=== PATIENT | male | born 1960 | race African-American/Black ===

== ENCOUNTER 2019-09-07 22:47 | Inpatient (IN) ==
[2019-09-07] MEDS ORDERED: ONDANSETRON 4 MG/2 ML VIAL IV STA (23:23)
[2019-09-07] MEDS ORDERED: fentaNYL 100 MCG/2 ML VIAL IV STA (23:23)
[2019-09-07 23:42] LABS: Basophils # 0.1 10*3/uL (0.0-0.2); Basophils % 0.9 % (0.0-0.8); Eosinophils # 0.1 10*3/uL (0.0-0.87); Hematocrit 49.1 VOL% (42.0-52.0); Hemoglobin 17.5 GM/DL (14.0-18.0); Immature Granulocytes % 0.3 %; Immature Granulocytes Absolute 0.02 #; Lymphocytes # 1.8 10*3/uL (1.4-4.0); Lymphocytes % 26.7 % (21.2-54.2); Mean Corpuscular HGB Conc 35.6 GM/DL (32-36); Mean Corpuscular Volume 94.4 FL (87-102); Mean Platelet Volume 11.5 FL (9.6-12.0); Monocytes % 11.5 % (1.7-12.7); Neutrophils % 58.6 % (38.7-73.9); Platelet Count 214 T/CUMM (130-400); Red Cell Distribution Width 13.4 % (9.3-17.3); White Blood Count 6.6 T/CUMM (4-12)
[2019-09-07 23:52] LABS: INR 1.1; PT Patient Result 11.8 SECS (9.8-11.9)
[2019-09-07] MEDS ORDERED: METOPROLOL TARTRATE 5 MG/5 ML VIAL IV STA (23:53)
[2019-09-08] MEDS ORDERED: fentaNYL 100 MCG/2 ML VIAL IV STA (00:29)
[2019-09-08 00:35] LABS: Alanine Aminotransferase 22 U/L (16-61); Albumin 3.3 G/DL (3.4-5.0); Alkaline Phosphatase 146 U/L (45-117); Aspartate Amino Transferase 51 U/L (0-37); Blood Urea Nitrogen 10 MG/DL (7-18); Calcium 8.6 MG/DL (8.5-10.1); Estimated Glom Filtration Rate 67 ML/MIN; Glucose 89 MG/DL (74-106); Osmolality,Calculated 267.1 MOS/KG (273-304); Total Protein 7.9 G/DL (6.4-8.3); Troponin I < 0.015 NG/ML (0.00-0.045)
[2019-09-08] MEDS ORDERED: DILTIAZEM 50 MG/10 ML VIAL IV STA (01:26)
[2019-09-08] MEDS: dilTIAZem Drip 125 MG/125 ML PREMIX IV SCH (02:14)
[2019-09-08 02:25] LABS: Calcium 8.6 MG/DL (8.5-10.1); Osmolality,Calculated 269.1 MOS/KG (273-304)
[2019-09-08] MEDS ORDERED: HYDROmorphone 2 MG/1 ML VIAL IV STA (02:54)
[2019-09-08] MEDS ORDERED: HYDROmorphone 2 MG/1 ML VIAL IV PRN (03:05)
[2019-09-08] MEDS ORDERED: ONDANSETRON 4 MG/2 ML VIAL IV PRN (03:13)
[2019-09-08] MEDS ORDERED: DOCUSATE SODIUM 100 MG CAPSULE PO PRN (03:13)
[2019-09-08] MEDS ORDERED: ACETAMINOPHEN 325 MG TABLET PO PRN (03:13)
[2019-09-08] MEDS ORDERED: HEPARIN DRIP 25,000 UNITS/500 ML PREMIX IV SCH (03:30)
[2019-09-08] MEDS ORDERED: HEPARIN 5,000 UNIT/1 ML VIAL IV PRN (03:40)
[2019-09-08 03:56] LABS: Risk Ratio 2.64
[2019-09-08] MEDS: SODIUM CHLORIDE 0.9% 1,000 ML IV SCH (05:12)
[2019-09-08] MEDS ORDERED: METOPROLOL TARTRATE 25 MG TABLET PO SCH (09:00)
[2019-09-08] MEDS ORDERED: VARENICLINE PO SCH (09:00)
[2019-09-08] MEDS: SACUBITRIL/VALSARTAN 49-51 MG TABLET PO SCH ×2 (09:48→22:11)
[2019-09-08] MEDS ORDERED: DIAZEPAM 5 MG TABLET PO ONE (11:19)
[2019-09-08] MEDS ORDERED: diphenhydrAMINE CAP 25 MG CAPSULE PO ONE (11:19)
[2019-09-08] MEDS ORDERED: LIDOCAINE 1% 20 ML VIAL ONE (12:45)
[2019-09-08] MEDS ORDERED: MIDAZOLAM 2 MG/2 ML VIAL ONE (12:45)
[2019-09-08] MEDS ORDERED: fentaNYL 100 MCG/2 ML VIAL ONE (12:46)
[2019-09-08] MEDS ORDERED: HYDROmorphone 2 MG/1 ML VIAL ONE ×2 (13:54→15:38)
[2019-09-08] MEDS ORDERED: TIROFIBAN 5,000 MCG/100 ML PREMIX IV ONE (14:28)
[2019-09-08] MEDS ORDERED: HEPARIN 5,000 UNIT/1 ML VIAL ONE (14:31)
[2019-09-08] MEDS ORDERED: NITROGLYCERIN DRIP 50 MG/250 ML BOTTLE IV ONE (15:02)
[2019-09-08] MEDS ORDERED: CLOPIDOGREL 300 MG TABLET ONE (15:52)
[2019-09-08] MEDS: TIROFIBAN 5,000 MCG/100 ML PREMIX IV SCH (15:53)
[2019-09-08] MEDS ORDERED: METOPROLOL TARTRATE 50 MG TABLET PO ONE (15:56)
[2019-09-08] MEDS ORDERED: NITROGLYCERIN SL 0.4 MG TABLET SL PRN (15:59)
[2019-09-08] MEDS ORDERED: ROSUVASTATIN 20 MG TABLET PO SCH (21:00)
[2019-09-08] MEDS: TICAGRELOR 90 MG TABLET PO SCH (22:11)
[2019-09-08] MEDS: METOPROLOL SUCCINATE XL 50 MG TABLET PO SCH (22:11)
[2019-09-09 05:39] LABS: Basophils % 0.8 % (0.0-0.8); Eosinophils # 0.1 10*3/uL (0.0-0.87); Eosinophils % 2.4 % (0.00-10.9); Hematocrit 46.9 VOL% (42.0-52.0); Hemoglobin 16.1 GM/DL (14.0-18.0); Immature Granulocytes % 0.4 %; Immature Granulocytes Absolute 0.02 #; Lymphocytes # 1.1 10*3/uL (1.4-4.0); Lymphocytes % 22.6 % (21.2-54.2); Mean Corpuscular HGB Conc 34.3 GM/DL (32-36); Mean Corpuscular Volume 97.3 FL (87-102); Mean Platelet Volume 10.6 FL (9.6-12.0); Monocytes % 11.7 % (1.7-12.7); Neutrophils % 62.1 % (38.7-73.9); Platelet Count 172 T/CUMM (130-400); Red Blood Count 4.82 MC/CUMM (3.8-5.5); Red Cell Distribution Width 12.8 % (9.3-17.3); White Blood Count 5.1 T/CUMM (4-12)
[2019-09-09 06:02] LABS: Albumin 2.8 G/DL (3.4-5.0); Bilirubin,Total 1.6 MG/DL (0.2-1.0); Osmolality,Calculated 270.8 MOS/KG (273-304); Total Protein 6.3 G/DL (6.4-8.3)
[2019-09-09] MEDS: TIROFIBAN 5,000 MCG/100 ML PREMIX IV SCH (07:29)
[2019-09-09] MEDS: dilTIAZem Drip 125 MG/125 ML PREMIX IV SCH (07:29)
[2019-09-09] MEDS: SODIUM CHLORIDE 0.9% 1,000 ML IV SCH (07:29)
[2019-09-09 08:04] VITALS: BP 140/92
[2019-09-09] MEDS: TICAGRELOR 90 MG TABLET PO SCH (08:47)
[2019-09-09] MEDS: SACUBITRIL/VALSARTAN 49-51 MG TABLET PO SCH (08:48)
[2019-09-09] MEDS: METOPROLOL SUCCINATE XL 50 MG TABLET PO SCH (08:48)
[2019-09-10] MEDS ORDERED: ERGOCALCIFEROL 50,000 UNIT CAPSULE PO SCH (09:00)
== END 2019-09-09 12:10 | disposition home or self-care (01) | DRG 253 ==
LOC: EDBD → EDUNIT# → N.ED 22:47 → N.EDINP 09-08 03:04 → N.TELES 09-08 03:31
PROVIDERS: ADMIT Internal Medicine; ATTEND Internal Medicine

== ENCOUNTER 2021-09-15 12:46 | Inpatient (IN) ==
[2021-09-15] MEDS ORDERED: SODIUM CHLORIDE 0.9% 1,000 ML IV STA ×2 (15:17→16:15)
[2021-09-15 15:45] LABS: Alanine Aminotransferase 18 U/L (16-61); Albumin 3.1 G/DL (3.4-5.0); Alkaline Phosphatase 73 U/L (45-117); Aspartate Amino Transferase 36 U/L (0-37); Blood Urea Nitrogen 14 MG/DL (7-18); Calcium 8.4 MG/DL (8.5-10.1); Carbon Dioxide 22 MMOL/L (21-32); Chloride 98 MMOL/L (98-107); Glucose 119 MG/DL (74-106); Osmolality,Calculated 269.2 MOS/KG (273-304); Potassium 3.8 MMOL/L (3.5-5.1); Sodium 134 MMOL/L (136-145); Total Protein 8.2 G/DL (6.4-8.2)
[2021-09-15] MEDS ORDERED: DILTIAZEM 100 MG VIAL.ADD IV ONE (15:55)
[2021-09-15] MEDS ORDERED: DILTIAZEM 25 MG/5 ML VIAL IV ONE (15:55)
[2021-09-15] MEDS ORDERED: DILTIAZEM 25 MG/5 ML VIAL IV STA (16:11)
[2021-09-15] MEDS: DILTIAZEM INJ 100 MG in SODIUM CHLORIDE 0.9% 100 ML IV SCH ×2 (16:25→23:38)
[2021-09-15 16:58] LABS: Basophils % 0.3 % (0.0-0.8); Hematocrit 53.9 VOL% (42.0-52.0); Hemoglobin 18.6 GM/DL (14.0-18.0); Immature Granulocytes % 0.3 %; Immature Granulocytes Absolute 0.02 #; Lymphocytes # 0.5 10*3/uL (1.4-4.0); Lymphocytes % 8.5 % (21.2-54.2); Mean Corpuscular HGB Conc 34.5 GM/DL (32-36); Mean Corpuscular Volume 98.4 FL (87-102); Monocytes # 0.4 10*3/uL (0.11-0.8); Monocytes % 7.6 % (1.7-12.7); Neutrophils % 83.3 % (38.7-73.9); Platelet Count 125 T/CUMM (130-400); Red Blood Count 5.48 MC/CUMM (3.8-5.5); Red Cell Distribution Width 13.4 % (9.3-17.3); White Blood Count 5.8 T/CUMM (4-12)
[2021-09-15] MEDS ORDERED: GLUCAGON 1 MG VIAL IM PRN (17:41)
[2021-09-15] MEDS ORDERED: ACETAMINOPHEN 325 MG TABLET PO PRN (17:41)
[2021-09-15] MEDS ORDERED: ONDANSETRON 4 MG/2 ML VIAL IV PRN (17:41)
[2021-09-15 17:59] LABS: Glucose,Urine (UA) Negative (Negative); Ketones,Urine 15 mg/dL (Negative); Nitrite,Urine Negative (Negative); Protein,Urine >=300 mg/dL (Negative); Urine Appearance Clear (Clear); Urine Color Yellow (Yellow); Urine Specific Gravity >= 1.030 (1.001-1.035); Urine pH 5.5 (4.5-8.0)
[2021-09-15 18:00] LABS: Bilirubin,Urine Negative (Negative); Blood, Urine Moderate mg/dL (Negative); Urine Urobilinogen 0.2 eU/dL (<2.0)
[2021-09-15] MEDS ORDERED: ENOXAPARIN 100 MG/ML SYRINGE SUBCUT SCH (18:00)
[2021-09-15 18:03] LABS: Hyaline Casts,Urine 1 /LPF (0-3); Mucus,Urine Occasional /LPF (Occasional); RBC,Urine 2 /HPF (0-4); Squamous Epithelial Cell,Urine Occasional /HPF (0-10)
[2021-09-15 18:24] LABS: Barbiturates Screen,Urine Negative (Negative); Benzodiazepines Screen,Urine Negative (Negative); Cannabinoid Screen,Urine Positive (Negative); Opiate Screen,Urine Negative (Negative); Phencyclidine Screen,Urine Negative (Negative)
[2021-09-15] MEDS ORDERED: DEXTROSE 10% 250 ML BAG IV PRN (18:30)
[2021-09-15] MEDS: SODIUM CHLORIDE 0.9% 1,000 ML IV SCH (18:55)
[2021-09-15] MEDS: LEVALBUTEROL 1.25 MG/3 ML NEB RESP TX SCH (19:24)
[2021-09-15] MEDS: APIXABAN 5 MG TABLET PO SCH (21:35)
[2021-09-15] MEDS: cefTRIAXone 1,000 MG in SODIUM CHLORIDE 0.9% 100 ML IV SCH (21:35)
[2021-09-15] MEDS: METOPROLOL SUCCINATE XL 100 MG TABLET PO SCH (21:35)
[2021-09-15] MEDS: SACUBITRIL/VALSARTAN 49-51 MG TABLET PO SCH (21:35)
[2021-09-15] MEDS: AZITHROMYCIN INJ 500 MG in SODIUM CHLORIDE 0.9% 250 ML IV SCH (21:35)
[2021-09-16] MEDS: LEVALBUTEROL 1.25 MG/3 ML NEB RESP TX SCH ×4 (00:13→19:07)
[2021-09-16] MEDS: DIAZEPAM 10 MG/2 ML SYRINGE IV PRN (00:20)
[2021-09-16] MEDS: chlordiazePOXIDE 10 MG CAPSULE PO SCH ×4 (00:20→20:05)
[2021-09-16 05:26] LABS: Basophils % 0.2 % (0.0-0.8); Hematocrit 42.7 VOL% (42.0-52.0); Immature Granulocytes % 0.5 %; Immature Granulocytes Absolute 0.02 #; Lymphocytes # 0.6 10*3/uL (1.4-4.0); Lymphocytes % 13.3 % (21.2-54.2); Mean Corpuscular HGB Conc 34.9 GM/DL (32-36); Mean Corpuscular Volume 97.5 FL (87-102); Mean Platelet Volume 12.9 FL (9.6-12.0); Monocytes # 0.4 10*3/uL (0.11-0.8); Monocytes % 8.6 % (1.7-12.7); Neutrophils % 77.4 % (38.7-73.9); Red Cell Distribution Width 13.4 % (9.3-17.3); White Blood Count 4.3 T/CUMM (4-12)
[2021-09-16 05:30] LABS: Hemoglobin 14.9 GM/DL (14.0-18.0); Platelet Count 91 T/CUMM (130-400); Red Blood Count 4.38 MC/CUMM (3.8-5.5)
[2021-09-16 05:47] LABS: Band Neutrophils 2 % (0-10); Lymphocytes 8 % (20-55); Platelet Estimate Decreased; Total Cells Counted 100
[2021-09-16 05:52] LABS: Albumin 2.1 G/DL (3.4-5.0); Bilirubin,Total 0.6 MG/DL (0.20-1.00); Calcium 7.9 MG/DL (8.5-10.1); Osmolality,Calculated 269.1 MOS/KG (273-304); Potassium 3.3 MMOL/L (3.5-5.1); Thyroid Stimulating Hormone 0.558 uIU/ml (0.358-3.74)
[2021-09-16] MEDS: APIXABAN 5 MG TABLET PO SCH ×2 (09:31→20:05)
[2021-09-16] MEDS: METOPROLOL SUCCINATE XL 100 MG TABLET PO SCH ×2 (09:31→20:05)
[2021-09-16] MEDS: SODIUM CHLORIDE 0.9% 1,000 ML IV SCH ×3 (09:31→11:17)
[2021-09-16] MEDS: predniSONE 20 MG TABLET PO SCH (09:32)
[2021-09-16] MEDS: SACUBITRIL/VALSARTAN 49-51 MG TABLET PO SCH (09:32)
[2021-09-16] MEDS: CYANOCOBALAMIN 500 MCG TABLET PO SCH (09:32)
[2021-09-16] MEDS: ASPIRIN EC 81 MG TABLET PO SCH (09:32)
[2021-09-16] MEDS: VERAPAMIL SR 120 MG TABLET PO SCH (09:32)
[2021-09-16] MEDS: PANTOPRAZOLE 40 MG TABLET PO SCH (09:32)
[2021-09-16] MEDS: DILTIAZEM INJ 100 MG in SODIUM CHLORIDE 0.9% 100 ML IV SCH (09:32)
[2021-09-16] MEDS: BETAMETHASONE AUGMENTED 0.05% TOP SCH ×2 (11:14→20:05)
[2021-09-16] MEDS ORDERED: POTASSIUM CHLORIDE 20 MEQ TABLET PO ONE (12:16)
[2021-09-16] MEDS: cefTRIAXone 1,000 MG in SODIUM CHLORIDE 0.9% 100 ML IV SCH (16:46)
[2021-09-16] MEDS ORDERED: SODIUM CHLORIDE 0.9% 500 ML IV ONE (17:12)
[2021-09-16] MEDS: AZITHROMYCIN INJ 500 MG in SODIUM CHLORIDE 0.9% 250 ML IV SCH (18:28)
[2021-09-17] MEDS: LEVALBUTEROL 1.25 MG/3 ML NEB RESP TX SCH ×4 (00:28→19:37)
[2021-09-17] MEDS: SODIUM CHLORIDE 0.9% 1,000 ML IV SCH ×2 (01:00→15:49)
[2021-09-17] MEDS: DIAZEPAM 10 MG/2 ML SYRINGE IV PRN (04:30)
[2021-09-17] MEDS ORDERED: POTASSIUM CHLORIDE 20 MEQ TABLET PO ONE (08:05)
[2021-09-17] MEDS: BETAMETHASONE AUGMENTED 0.05% TOP SCH ×2 (09:07→21:28)
[2021-09-17] MEDS: predniSONE 20 MG TABLET PO SCH (09:11)
[2021-09-17] MEDS: METOPROLOL SUCCINATE XL 100 MG TABLET PO SCH ×2 (09:11→20:34)
[2021-09-17] MEDS: VERAPAMIL SR 120 MG TABLET PO SCH (09:11)
[2021-09-17] MEDS: ASPIRIN EC 81 MG TABLET PO SCH (09:12)
[2021-09-17] MEDS: DAPAGLIFLOZIN 10 MG TABLET PO SCH (09:12)
[2021-09-17] MEDS: chlordiazePOXIDE 10 MG CAPSULE PO SCH ×3 (09:12→20:34)
[2021-09-17] MEDS: CYANOCOBALAMIN 500 MCG TABLET PO SCH (09:12)
[2021-09-17] MEDS: APIXABAN 5 MG TABLET PO SCH ×2 (09:12→20:35)
[2021-09-17] MEDS: PANTOPRAZOLE 40 MG TABLET PO SCH (09:12)
[2021-09-17 11:19] LABS: Calcium 8.7 MG/DL (8.5-10.1); Osmolality,Calculated 269.2 MOS/KG (273-304); Potassium 4.3 MMOL/L (3.5-5.1)
[2021-09-17] MEDS: cefTRIAXone 1,000 MG in SODIUM CHLORIDE 0.9% 100 ML IV SCH (18:05)
[2021-09-17] MEDS: DILTIAZEM INJ 100 MG in SODIUM CHLORIDE 0.9% 100 ML IV SCH (19:57)
[2021-09-17] MEDS: SACUBITRIL/VALSARTAN 49-51 MG TABLET PO SCH (20:34)
[2021-09-18] MEDS: LEVALBUTEROL 1.25 MG/3 ML NEB RESP TX SCH ×2 (00:44→07:46)
[2021-09-18] MEDS: DIAZEPAM 10 MG/2 ML SYRINGE IV PRN (01:04)
[2021-09-18] MEDS: SODIUM CHLORIDE 0.9% 1,000 ML IV SCH ×2 (03:07→11:11)
[2021-09-18 04:24] LABS: Hematocrit 42.5 VOL% (42.0-52.0); Hemoglobin 14.8 GM/DL (14.0-18.0); Immature Granulocytes % 0.3 %; Immature Granulocytes Absolute 0.01 #; Lymphocytes # 0.4 10*3/uL (1.4-4.0); Lymphocytes % 14.2 % (21.2-54.2); Mean Corpuscular HGB Conc 34.8 GM/DL (32-36); Mean Corpuscular Volume 95.9 FL (87-102); Mean Platelet Volume 13.5 FL (9.6-12.0); Monocytes # 0.3 10*3/uL (0.11-0.8); Monocytes % 11.2 % (1.7-12.7); Neutrophils % 74.3 % (38.7-73.9); Platelet Count 114 T/CUMM (130-400); Red Blood Count 4.43 MC/CUMM (3.8-5.5); Red Cell Distribution Width 13.9 % (9.3-17.3)
[2021-09-18 04:43] LABS: Calcium 8.7 MG/DL (8.5-10.1); Osmolality,Calculated 280.5 MOS/KG (273-304); Potassium 3.8 MMOL/L (3.5-5.1)
[2021-09-18 04:47] LABS: Band Neutrophils 7 % (0-10); Lymphocytes 15 % (20-55); Total Cells Counted 100
[2021-09-18 04:48] LABS: Platelet Estimate Decreased
[2021-09-18 07:42] VITALS: BP 98/82
[2021-09-18] MEDS: chlordiazePOXIDE 10 MG CAPSULE PO SCH (09:27)
[2021-09-18] MEDS: CYANOCOBALAMIN 500 MCG TABLET PO SCH (09:27)
[2021-09-18] MEDS: METOPROLOL SUCCINATE XL 100 MG TABLET PO SCH (09:27)
[2021-09-18] MEDS: PANTOPRAZOLE 40 MG TABLET PO SCH (09:27)
[2021-09-18] MEDS: APIXABAN 5 MG TABLET PO SCH (09:27)
[2021-09-18] MEDS: BETAMETHASONE AUGMENTED 0.05% TOP SCH (09:28)
[2021-09-18] MEDS: predniSONE 20 MG TABLET PO SCH (09:28)
[2021-09-18] MEDS: SACUBITRIL/VALSARTAN 49-51 MG TABLET PO SCH (09:28)
[2021-09-18] MEDS: ASPIRIN EC 81 MG TABLET PO SCH (09:28)
[2021-09-18] MEDS: VERAPAMIL SR 120 MG TABLET PO SCH (09:28)
[2021-09-18] MEDS: DAPAGLIFLOZIN 10 MG TABLET PO SCH (09:28)
[2021-09-18] MEDS: AZITHROMYCIN INJ 500 MG in SODIUM CHLORIDE 0.9% 250 ML IV SCH (11:11)
== END 2021-09-18 12:21 | disposition home or self-care (01) | DRG 308 ==
LOC: N.ED 12:46 → SUATTDRO 17:41 → N.EDINP 17:41 → N.TELEN 19:20
PROVIDERS: ADMIT Family Medicine; ATTEND Internal Medicine